=== PATIENT | female | born 1945 | race Caucasian/White ===

== ENCOUNTER 2020-01-20 12:36 | Inpatient (IN) ==
[2020-01-20] MEDS ORDERED: SODIUM CHLORIDE 0.9% 1,000 ML IV STA (12:50)
[2020-01-20 13:25] LABS: ABG Base Excess -0.7 MMOL/L (-2.5-2.5); ABG HCO3 23.4 MMOL/L (20-26); ABG Oxygen Saturation 74.4 % (95-100); ABG PCO2 51.5 MM HG (35-48); ABG PH 7.316 (7.35-7.45); ABG PO2 45.8 MM HG (80-95); ABG TCO2 23.6 MMOL/L (23-27)
[2020-01-20 14:09] LABS: Basophils % 0.1 % (0.0-0.8); Hemoglobin 12.4 GM/DL (12.0-16.0); Immature Granulocytes % 0.6 %; Immature Granulocytes Absolute 0.06 #; Lymphocytes # 1.1 10*3/uL (1.4-4.0); Lymphocytes % 10.5 % (21.3-54.2); Mean Corpuscular HGB Conc 30.2 GM/DL (32-36); Mean Corpuscular Volume 91.9 FL (87-102); Mean Platelet Volume 13.2 FL (9.6-12.0); Monocytes % 7.2 % (1.7-12.7); Neutrophils % 81.6 % (38.7-73.9); Platelet Count 146 T/CUMM (130-400); Red Blood Count 4.46 MC/CUMM (3.8-5.5); White Blood Count 10.8 T/CUMM (4-12)
[2020-01-20 14:14] LABS: Albumin 3.6 G/DL (3.4-5.0); Bilirubin,Total 0.6 MG/DL (0.2-1.0); Calcium 9.4 MG/DL (8.5-10.1); Osmolality,Calculated 288.4 MOS/KG (273-304); Total Protein 6.9 G/DL (6.4-8.3)
[2020-01-20 14:28] LABS: Apearance,Urine CLOUDY (Clear); Bilirubin,Urine Negative (Negative); Blood, Urine Moderate mg/dL (Negative); Glucose,Urine (UA) Negative (Negative); Ketones,Urine Negative (Negative); Mucus,Urine Occasional /LPF (Occasional); Nitrite,Urine Negative (Negative); Protein,Urine >=500 MG/DL; Urine Color Yellow (Yellow); Urine Specific Gravity 1.016 (1.001-1.035); Urine Urobilinogen < 2.0 EU/DL (0.2-1.0); WBC,Urine 2245 /HPF (0-6)
[2020-01-20 14:30] LABS: INR 1.1; PT Patient Result 11.6 SECS (9.8-11.9); Partial Thromboplastin Time 26.6 SECS (23.9-33.8)
[2020-01-20 14:30] LABS: Barbiturates Screen,Urine Negative (Negative); Benzodiazepines Screen,Urine Negative (Negative); Cannabinoid Screen,Urine Negative (Negative); Opiate Screen,Urine Positive (Negative); Phencyclidine Screen,Urine Negative (Negative)
[2020-01-20] MEDS ORDERED: LEVOFLOXACIN INJ 500 MG in PREMIX 1 EACH IV STA (15:07)
[2020-01-20] MEDS ORDERED: ENOXAPARIN 40 MG/0.4 ML SYRINGE SUBCUT STA (15:09)
[2020-01-20] MEDS ORDERED: FUROSEMIDE 100 MG/10 ML VIAL IV ONE (16:50)
[2020-01-20] MEDS ORDERED: GLUCAGON 1 MG VIAL IM PRN (17:08)
[2020-01-20] MEDS ORDERED: DEXTROSE 50% 25 GM/50 ML VIAL IV PRN (17:08)
[2020-01-20] MEDS ORDERED: ONDANSETRON 4 MG/2 ML VIAL IV PRN (17:08)
[2020-01-20] MEDS ORDERED: FUROSEMIDE 20 MG/2 ML VIAL ONE (17:35)
[2020-01-20] MEDS ORDERED: FUROSEMIDE 40 MG/4 ML VIAL ONE (17:36)
[2020-01-20] MEDS: methylPREDNISolone SOD SUC 40 MG/1 ML VIAL IV SCH (17:41)
[2020-01-20] MEDS: ENOXAPARIN 30 MG/0.3 ML SYRINGE SUBCUT SCH (17:43)
[2020-01-20] MEDS: ALBUTEROL/IPRATROPIUM 3 ML NEB RESP TX SCH ×2 (18:59→23:24)
[2020-01-20] MEDS ORDERED: hydrALAZINE 20 MG/1 ML VIAL IV ONE (20:40)
[2020-01-20] MEDS ORDERED: ALBUTEROL/IPRATROPIUM 3 ML NEB RESP TX ONE (20:41)
[2020-01-20 21:19] LABS: ABG Base Excess -1.8 MMOL/L (-2.5-2.5); ABG HCO3 22.7 MMOL/L (20-26); ABG Oxygen Saturation 86.1 % (95-100); ABG PCO2 58.8 MM HG (35-48); ABG PH 7.265 (7.35-7.45); ABG PO2 61.9 MM HG (80-95); ABG TCO2 23.7 MMOL/L (23-27)
[2020-01-20] MEDS ORDERED: ETOMIDATE 20 MG/10 ML VIAL IV ONE (21:25)
[2020-01-20] MEDS ORDERED: VECURONIUM 10 MG VIAL IV ONE (21:26)
[2020-01-20] MEDS: BIMATOPROST 0.01% OPH SOLN 2.5 ML BOTTLE BOTH EYES SCH (22:57)
[2020-01-20] MEDS: BUDESONIDE/FORMOTEROL 160-4.5 INHALER 6 GM INH SCH (22:57)
[2020-01-20] MEDS: FUROSEMIDE INJ 100 MG in SODIUM CHLORIDE 0.9% 90 ML IV SCH (22:57)
[2020-01-20] MEDS: INSULIN LISPRO 100 UNIT/ML SUBCUT SCH (22:58)
[2020-01-20] MEDS: cilostazoL 100 MG TABLET PO SCH (22:59)
[2020-01-20] MEDS: AMPICILLIN 500 MG CAPSULE PO SCH (22:59)
[2020-01-20 23:12] LABS: ABG Base Excess 0.8 MMOL/L (-2.5-2.5); ABG HCO3 24.8 MMOL/L (20-26); ABG Oxygen Saturation 84.2 % (95-100); ABG PCO2 40.4 MM HG (35-48); ABG PH 7.408 (7.35-7.45); ABG PO2 50.8 MM HG (80-95); ABG TCO2 22.2 MMOL/L (23-27)
[2020-01-21] MEDS: methylPREDNISolone SOD SUC 40 MG/1 ML VIAL IV SCH ×3 (01:54→18:17)
[2020-01-21] MEDS: ALBUTEROL/IPRATROPIUM 3 ML NEB RESP TX SCH ×6 (03:08→23:24)
[2020-01-21 03:53] LABS: ABG Base Excess 1.6 MMOL/L (-2.5-2.5); ABG HCO3 25.7 MMOL/L (20-26); ABG Oxygen Saturation 91.9 % (95-100); ABG PH 7.437 (7.35-7.45); ABG PO2 64.2 MM HG (80-95); ABG TCO2 22.4 MMOL/L (23-27); Allen Test Positive; Pt O2 Delivery Device Ventilator
[2020-01-21 04:31] LABS: Basophils % 0.1 % (0.0-0.8); Hematocrit 40.9 VOL% (35.7-47.0); Hemoglobin 12.9 GM/DL (12.0-16.0); Immature Granulocytes % 0.6 %; Immature Granulocytes Absolute 0.07 #; Lymphocytes % 7.6 % (21.3-54.2); Mean Corpuscular HGB Conc 31.5 GM/DL (32-36); Mean Platelet Volume 12.8 FL (9.6-12.0); Monocytes % 5.9 % (1.7-12.7); Neutrophils % 85.8 % (38.7-73.9); Platelet Count 141 T/CUMM (130-400); Red Cell Distribution Width 14.9 % (9.3-17.3); White Blood Count 12.6 T/CUMM (4-12)
[2020-01-21 04:53] LABS: Calcium 9.1 MG/DL (8.5-10.1); Osmolality,Calculated 291.1 MOS/KG (273-304)
[2020-01-21] MEDS: INSULIN LISPRO 100 UNIT/ML SUBCUT SCH ×4 (07:54→20:51)
[2020-01-21] MEDS ORDERED: NF- (Fluticasone-Umeclidin-Vilanter [Trelegy Ellipta] 1 inh) INH SCH (09:00)
[2020-01-21] MEDS ORDERED: MAGNESIUM SULF RIDER 2 GM in PREMIX 1 EACH IV PRN (09:10)
[2020-01-21] MEDS ORDERED: POTASSIUM CHLORIDE 10 MEQ TABLET PO ONE (09:10)
[2020-01-21] MEDS ORDERED: MAGNESIUM SULF RIDER 4 GM in PREMIX 1 EACH IV PRN (09:10)
[2020-01-21] MEDS: cilostazoL 100 MG TABLET PO SCH ×2 (09:46→20:45)
[2020-01-21] MEDS: ATORVASTATIN 40 MG TABLET PO SCH (09:47)
[2020-01-21] MEDS: ASPIRIN CHEW 81 MG TABLET PO SCH (09:47)
[2020-01-21] MEDS: PANTOPRAZOLE 40 MG VIAL IV SCH (09:47)
[2020-01-21] MEDS: amLODIPine 5 MG TABLET PO SCH (09:56)
[2020-01-21] MEDS: LEVOFLOXACIN INJ 750 MG in PREMIX 1 EACH IV SCH (09:57)
[2020-01-21] MEDS: BUDESONIDE/FORMOTEROL 160-4.5 INHALER 6 GM INH SCH ×2 (09:57→20:48)
[2020-01-21] MEDS: AMPICILLIN 500 MG CAPSULE PO SCH ×4 (12:31→20:50)
[2020-01-21] MEDS: FUROSEMIDE INJ 100 MG in SODIUM CHLORIDE 0.9% 90 ML IV SCH (18:13)
[2020-01-21] MEDS: ENOXAPARIN 30 MG/0.3 ML SYRINGE SUBCUT SCH (18:16)
[2020-01-21] MEDS: MIDAZOLAM 2 MG/2 ML VIAL IV PRN (20:44)
[2020-01-21] MEDS: BIMATOPROST 0.01% OPH SOLN 2.5 ML BOTTLE BOTH EYES SCH (20:51)
[2020-01-22] MEDS: methylPREDNISolone SOD SUC 40 MG/1 ML VIAL IV SCH ×3 (02:22→17:20)
[2020-01-22] MEDS: ALBUTEROL/IPRATROPIUM 3 ML NEB RESP TX SCH ×6 (03:21→23:53)
[2020-01-22 03:55] LABS: ABG Base Excess 4.3 MMOL/L (-2.5-2.5); ABG HCO3 26.3 MMOL/L (20-26); ABG Oxygen Saturation 98.7 % (95-100); ABG PCO2 31.2 MM HG (35-48); ABG PH 7.544 (7.35-7.45); ABG PO2 164.1 MM HG (80-95); ABG TCO2 27.3 MMOL/L (23-27); Allen Test Positive; Pt O2 Delivery Device Ventilator
[2020-01-22 04:48] LABS: Hematocrit 36.8 VOL% (35.7-47.0); Hemoglobin 11.8 GM/DL (12.0-16.0); Immature Granulocytes % 0.4 %; Immature Granulocytes Absolute 0.05 #; Lymphocytes # 0.7 10*3/uL (1.4-4.0); Mean Corpuscular HGB Conc 32.1 GM/DL (32-36); Mean Corpuscular Volume 84.4 FL (87-102); Mean Platelet Volume 12.7 FL (9.6-12.0); Monocytes % 6.4 % (1.7-12.7); Neutrophils % 87.2 % (38.7-73.9); Platelet Count 162 T/CUMM (130-400); Red Blood Count 4.36 MC/CUMM (3.8-5.5); Red Cell Distribution Width 15.2 % (9.3-17.3); White Blood Count 11.7 T/CUMM (4-12)
[2020-01-22 05:14] LABS: Osmolality,Calculated 285.8 MOS/KG (273-304)
[2020-01-22 05:16] LABS: Albumin 3.4 G/DL (3.4-5.0); Bilirubin,Direct 0.21 MG/DL (0.0-0.20); Bilirubin,Indirect 0.3 MG/DL (0.0-1.0); Bilirubin,Total 0.5 MG/DL (0.2-1.0); Total Protein 6.5 G/DL (6.4-8.3)
[2020-01-22] MEDS: INSULIN LISPRO 100 UNIT/ML SUBCUT SCH ×3 (08:02→17:02)
[2020-01-22] MEDS: ASPIRIN CHEW 81 MG TABLET PO SCH (08:17)
[2020-01-22] MEDS: PANTOPRAZOLE 40 MG VIAL IV SCH (08:17)
[2020-01-22] MEDS: amLODIPine 5 MG TABLET PO SCH (08:18)
[2020-01-22] MEDS: AMPICILLIN 500 MG CAPSULE PO SCH ×4 (08:18→20:37)
[2020-01-22] MEDS: ATORVASTATIN 40 MG TABLET PO SCH (08:18)
[2020-01-22] MEDS: cilostazoL 100 MG TABLET PO SCH ×2 (08:18→20:37)
[2020-01-22] MEDS: POTASSIUM CHLORIDE 20 MEQ/15 ML UDCUP PER TUBE SCH ×3 (08:43→17:21)
[2020-01-22] MEDS: BUDESONIDE/FORMOTEROL 160-4.5 INHALER 6 GM INH SCH ×2 (08:50→20:37)
[2020-01-22] MEDS ORDERED: FUROSEMIDE 40 MG/4 ML VIAL IV ONE (14:00)
[2020-01-22] MEDS: ENOXAPARIN 30 MG/0.3 ML SYRINGE SUBCUT SCH (17:21)
[2020-01-22] MEDS: BIMATOPROST 0.01% OPH SOLN 2.5 ML BOTTLE BOTH EYES SCH (21:38)
[2020-01-23] MEDS: INSULIN LISPRO 100 UNIT/ML SUBCUT SCH ×4 (00:08→18:36)
[2020-01-23] MEDS: MIDAZOLAM 2 MG/2 ML VIAL IV PRN ×2 (00:17→06:26)
[2020-01-23] MEDS: methylPREDNISolone SOD SUC 40 MG/1 ML VIAL IV SCH ×3 (00:56→16:39)
[2020-01-23 03:02] LABS: Allen Test Positive; Pt O2 Delivery Device Ventilator
[2020-01-23 03:03] LABS: ABG Base Excess 5.9 MMOL/L (-2.5-2.5); ABG HCO3 29.8 MMOL/L (20-26); ABG Oxygen Saturation 99.7 % (95-100); ABG PCO2 33.4 MM HG (35-48); ABG PH 7.538 (7.35-7.45); ABG TCO2 24.9 MMOL/L (23-27)
[2020-01-23] MEDS: ALBUTEROL/IPRATROPIUM 3 ML NEB RESP TX SCH ×6 (03:28→23:20)
[2020-01-23 04:40] LABS: Hemoglobin 11.9 GM/DL (12.0-16.0); Immature Granulocytes % 0.7 %; Immature Granulocytes Absolute 0.09 #; Lymphocytes # 0.7 10*3/uL (1.4-4.0); Lymphocytes % 4.9 % (21.3-54.2); Mean Corpuscular HGB Conc 32.2 GM/DL (32-36); Mean Corpuscular Volume 85.8 FL (87-102); Mean Platelet Volume 12.6 FL (9.6-12.0); Monocytes % 8.4 % (1.7-12.7); Platelet Count 184 T/CUMM (130-400); Red Blood Count 4.31 MC/CUMM (3.8-5.5); Red Cell Distribution Width 15.3 % (9.3-17.3); White Blood Count 13.4 T/CUMM (4-12)
[2020-01-23 04:57] LABS: Calcium 9.2 MG/DL (8.5-10.1); Osmolality,Calculated 295.7 MOS/KG (273-304)
[2020-01-23 04:59] LABS: Albumin 3.7 G/DL (3.4-5.0); Bilirubin,Direct 0.2 MG/DL (0.0-0.20); Bilirubin,Indirect 0.6 MG/DL (0.0-1.0); Bilirubin,Total 0.8 MG/DL (0.2-1.0); Total Protein 6.6 G/DL (6.4-8.3)
[2020-01-23 08:00] LABS: Band Neutrophils 1 % (0-10); Hypochromasia 1+; Lymphocytes 6 % (20-55); Microcytosis Slight; Ovalocytes Slight; Segmented Neutrophils 86 % (50-85); Total Cells Counted 100
[2020-01-23 08:01] LABS: Platelet Estimate Adequate
[2020-01-23] MEDS: AMPICILLIN 500 MG CAPSULE PO SCH ×4 (08:43→21:48)
[2020-01-23] MEDS: PANTOPRAZOLE 40 MG VIAL IV SCH (08:43)
[2020-01-23] MEDS: cilostazoL 100 MG TABLET PO SCH ×2 (08:43→21:49)
[2020-01-23] MEDS: ATORVASTATIN 40 MG TABLET PO SCH (08:43)
[2020-01-23] MEDS: ASPIRIN CHEW 81 MG TABLET PO SCH (08:43)
[2020-01-23] MEDS: BUDESONIDE/FORMOTEROL 160-4.5 INHALER 6 GM INH SCH ×3 (08:45→21:49)
[2020-01-23] MEDS: LEVOFLOXACIN INJ 750 MG in PREMIX 1 EACH IV SCH (08:59)
[2020-01-23] MEDS: amLODIPine 5 MG TABLET PO SCH (09:04)
[2020-01-23] MEDS: ENOXAPARIN 30 MG/0.3 ML SYRINGE SUBCUT SCH (16:40)
[2020-01-23] MEDS: hydrALAZINE 20 MG/1 ML VIAL IV PRN ×2 (16:40→22:53)
[2020-01-23] MEDS: cloNIDine 0.3 MG/24 HR PATCH TRANSDERM SCH (19:41)
[2020-01-23] MEDS: BIMATOPROST 0.01% OPH SOLN 2.5 ML BOTTLE BOTH EYES SCH (21:49)
[2020-01-24] MEDS: INSULIN LISPRO 100 UNIT/ML SUBCUT SCH ×4 (00:34→19:20)
[2020-01-24] MEDS: methylPREDNISolone SOD SUC 40 MG/1 ML VIAL IV SCH ×3 (02:36→16:47)
[2020-01-24] MEDS: niCARdipine INJ 25 MG in SODIUM CHLORIDE 0.9% 240 ML IV PRN (03:13)
[2020-01-24] MEDS: ALBUTEROL/IPRATROPIUM 3 ML NEB RESP TX SCH ×6 (03:55→23:43)
[2020-01-24 04:17] LABS: Allen Test Positive; Pt O2 Delivery Device Ventilator
[2020-01-24 04:20] LABS: ABG Base Excess 5.8 MMOL/L (-2.5-2.5); ABG HCO3 29.6 MMOL/L (20-26); ABG Oxygen Saturation 98.2 % (95-100); ABG PCO2 38.6 MM HG (35-48); ABG TCO2 25.9 MMOL/L (23-27)
[2020-01-24 04:54] LABS: Basophils % 0.1 % (0.0-0.8); Hemoglobin 11.6 GM/DL (12.0-16.0); Immature Granulocytes % 0.9 %; Immature Granulocytes Absolute 0.12 #; Lymphocytes # 1.2 10*3/uL (1.4-4.0); Lymphocytes % 9.1 % (21.3-54.2); Mean Corpuscular HGB Conc 31.4 GM/DL (32-36); Mean Corpuscular Volume 86.2 FL (87-102); Mean Platelet Volume 12.8 FL (9.6-12.0); Monocytes % 13.5 % (1.7-12.7); Neutrophils % 76.4 % (38.7-73.9); Red Blood Count 4.29 MC/CUMM (3.8-5.5); Red Cell Distribution Width 15.4 % (9.3-17.3); White Blood Count 13.6 T/CUMM (4-12)
[2020-01-24 04:56] LABS: Platelet Count 171 T/CUMM (130-400)
[2020-01-24 05:13] LABS: Albumin 3.4 G/DL (3.4-5.0)
[2020-01-24 05:27] LABS: Hypochromasia 1+; Microcytosis 1+; Ovalocytes Few; Polychromasia Slight
[2020-01-24 05:28] LABS: Platelet Estimate Adequate
[2020-01-24 05:40] LABS: Bilirubin,Direct 0.21 MG/DL (0.0-0.20); Bilirubin,Indirect 0.4 MG/DL (0.0-1.0); Bilirubin,Total 0.6 MG/DL (0.2-1.0); Calcium 8.9 MG/DL (8.5-10.1); Osmolality,Calculated 306.3 MOS/KG (273-304); Total Protein 6.5 G/DL (6.4-8.3)
[2020-01-24] MEDS: ACETAMINOPHEN 325 MG TABLET PO PRN (08:31)
[2020-01-24] MEDS: cilostazoL 100 MG TABLET PO SCH ×2 (08:31→21:22)
[2020-01-24] MEDS: amLODIPine 5 MG TABLET PO SCH (08:33)
[2020-01-24] MEDS: ASPIRIN CHEW 81 MG TABLET PO SCH (08:33)
[2020-01-24] MEDS: ATORVASTATIN 40 MG TABLET PO SCH (08:33)
[2020-01-24] MEDS: PANTOPRAZOLE 40 MG VIAL IV SCH (08:43)
[2020-01-24] MEDS: AMPICILLIN 500 MG CAPSULE PO SCH ×4 (09:24→21:22)
[2020-01-24] MEDS: BUDESONIDE/FORMOTEROL 160-4.5 INHALER 6 GM INH SCH ×2 (09:46→21:22)
[2020-01-24] MEDS: METOCLOPRAMIDE 10 MG/2 ML VIAL IV SCH ×2 (13:50→18:43)
[2020-01-24] MEDS: ENOXAPARIN 30 MG/0.3 ML SYRINGE SUBCUT SCH (16:48)
[2020-01-24] MEDS: MIDAZOLAM 2 MG/2 ML VIAL IV PRN (18:38)
[2020-01-24] MEDS: GABAPENTIN 600 MG TABLET PO SCH (21:22)
[2020-01-24] MEDS: BIMATOPROST 0.01% OPH SOLN 2.5 ML BOTTLE BOTH EYES SCH (21:22)
[2020-01-25] MEDS: INSULIN LISPRO 100 UNIT/ML SUBCUT SCH ×4 (00:17→17:19)
[2020-01-25] MEDS: METOCLOPRAMIDE 10 MG/2 ML VIAL IV SCH ×4 (01:47→18:25)
[2020-01-25] MEDS: methylPREDNISolone SOD SUC 40 MG/1 ML VIAL IV SCH ×3 (01:47→17:23)
[2020-01-25] MEDS: ALBUTEROL/IPRATROPIUM 3 ML NEB RESP TX SCH ×6 (03:11→23:10)
[2020-01-25 04:47] LABS: Allen Test Positive; Pt O2 Delivery Device Ventilator
[2020-01-25 04:48] LABS: ABG Base Excess 3.3 MMOL/L (-2.5-2.5); ABG HCO3 26.6 MMOL/L (20-26); ABG Oxygen Saturation 98.3 % (95-100); ABG PCO2 35.6 MM HG (35-48); ABG PH 7.491 (7.35-7.45); ABG PO2 124.8 MM HG (80-95); ABG TCO2 27.7 MMOL/L (23-27)
[2020-01-25 04:48] LABS: Basophils % 0.1 % (0.0-0.8); Hematocrit 34.3 VOL% (35.7-47.0); Hemoglobin 10.8 GM/DL (12.0-16.0); Lymphocytes # 1.3 10*3/uL (1.4-4.0); Lymphocytes % 13.2 % (21.3-54.2); Mean Corpuscular HGB Conc 31.5 GM/DL (32-36); Mean Corpuscular Volume 84.9 FL (87-102); Mean Platelet Volume 13.9 FL (9.6-12.0); Monocytes % 12.4 % (1.7-12.7); Neutrophils % 73.3 % (38.7-73.9); Platelet Count 132 T/CUMM (130-400); Red Blood Count 4.04 MC/CUMM (3.8-5.5); White Blood Count 9.9 T/CUMM (4-12)
[2020-01-25 04:56] LABS: Calcium 8.6 MG/DL (8.5-10.1); Osmolality,Calculated 311.5 MOS/KG (273-304)
[2020-01-25 05:40] LABS: Hypochromasia 1+; Microcytosis Slight; Ovalocytes Slight; Platelet Estimate Normal
[2020-01-25] MEDS: amLODIPine 5 MG TABLET PO SCH (09:03)
[2020-01-25] MEDS: ATORVASTATIN 40 MG TABLET PO SCH (09:03)
[2020-01-25] MEDS: AMPICILLIN 500 MG CAPSULE PO SCH ×3 (09:03→17:21)
[2020-01-25] MEDS: cilostazoL 100 MG TABLET PO SCH ×2 (09:04→20:05)
[2020-01-25] MEDS: GABAPENTIN 600 MG TABLET PO SCH ×2 (09:04→20:05)
[2020-01-25] MEDS: PANTOPRAZOLE 40 MG VIAL IV SCH (09:05)
[2020-01-25] MEDS: LEVOFLOXACIN INJ 750 MG in PREMIX 1 EACH IV SCH (09:06)
[2020-01-25] MEDS: ASPIRIN CHEW 81 MG TABLET PO SCH (09:06)
[2020-01-25] MEDS ORDERED: amLODIPine 5 MG TABLET PO ONE (11:19)
[2020-01-25] MEDS: BUDESONIDE/FORMOTEROL 160-4.5 INHALER 6 GM INH SCH ×2 (12:06→20:05)
[2020-01-25] MEDS: SODIUM CHLORIDE 0.45% 1,000 ML IV SCH (12:26)
[2020-01-25 12:28] LABS: Microalbum Ur Quant Random 23.4 MG/L (0-20); Microalbum/Creat Ratio Random 36.6 RATIO (0-30)
[2020-01-25] MEDS: ENOXAPARIN 30 MG/0.3 ML SYRINGE SUBCUT SCH (17:22)
[2020-01-25] MEDS: MIDAZOLAM 2 MG/2 ML VIAL IV PRN (18:26)
[2020-01-25] MEDS: BIMATOPROST 0.01% OPH SOLN 2.5 ML BOTTLE BOTH EYES SCH (20:05)
[2020-01-25] MEDS: hydrALAZINE 20 MG/1 ML VIAL IV PRN (21:07)
[2020-01-26] MEDS: METOCLOPRAMIDE 10 MG/2 ML VIAL IV SCH ×4 (00:15→18:57)
[2020-01-26] MEDS: methylPREDNISolone SOD SUC 40 MG/1 ML VIAL IV SCH ×3 (00:20→18:08)
[2020-01-26] MEDS: INSULIN LISPRO 100 UNIT/ML SUBCUT SCH ×4 (00:48→18:10)
[2020-01-26] MEDS: ALBUTEROL/IPRATROPIUM 3 ML NEB RESP TX SCH ×5 (03:06→19:59)
[2020-01-26 04:31] LABS: ABG Base Excess 3.5 MMOL/L (-2.5-2.5); ABG HCO3 27.6 MMOL/L (20-26); ABG Oxygen Saturation 97.1 % (95-100); ABG PCO2 42.8 MM HG (35-48); ABG PH 7.428 (7.35-7.45); ABG PO2 94.8 MM HG (80-95); ABG TCO2 25.1 MMOL/L (23-27); Allen Test Positive; Pt O2 Delivery Device Ventilator
[2020-01-26 05:06] LABS: Basophils % 0.1 % (0.0-0.8); Eosinophils % 0.1 % (0.00-10.9); Hematocrit 36.5 VOL% (35.7-47.0); Hemoglobin 11.3 GM/DL (12.0-16.0); Immature Granulocytes % 1.9 %; Immature Granulocytes Absolute 0.24 #; Lymphocytes % 8.3 % (21.3-54.2); Mean Corpuscular Volume 86.3 FL (87-102); Mean Platelet Volume 12.5 FL (9.6-12.0); Monocytes % 11.6 % (1.7-12.7); Platelet Count 149 T/CUMM (130-400); Red Blood Count 4.23 MC/CUMM (3.8-5.5); Red Cell Distribution Width 14.6 % (9.3-17.3); White Blood Count 12.4 T/CUMM (4-12)
[2020-01-26] MEDS: SODIUM CHLORIDE 0.45% 1,000 ML IV SCH ×2 (05:18→21:58)
[2020-01-26 05:29] LABS: Hypochromasia 1+; Microcytosis Slight; Ovalocytes Slight; Platelet Estimate Adequate
[2020-01-26 05:41] LABS: Alanine Aminotransferase 76 U/L (13-56); Alkaline Phosphatase 62 U/L (45-117); Aspartate Amino Transferase 46 U/L (0-37); Bilirubin,Total < 0.39 MG/DL (0.2-1.0); Blood Urea Nitrogen 98 MG/DL (7-18); Calcium 8.7 MG/DL (8.5-10.1); Estimated Glom Filtration Rate 23 ML/MIN; Glucose 139 MG/DL (74-106); Osmolality,Calculated 313.3 MOS/KG (273-304); Total Protein 6.2 G/DL (6.4-8.3)
[2020-01-26] MEDS: hydrALAZINE 20 MG/1 ML VIAL IV PRN ×2 (06:04→11:22)
[2020-01-26 06:34] LABS: Hepatitis B Core IgM Quant 0.15 Index; Hepatitis B Surface Ag Quant 0.12 Index; Hepatitis B Surface Ag Result Negative (Negative); Hepatitis C Virus Ab Quant 0.02 Index; Hepatitis C Virus Ab Result Negative (Negative)
[2020-01-26] MEDS: BUDESONIDE/FORMOTEROL 160-4.5 INHALER 6 GM INH SCH ×2 (08:40→20:50)
[2020-01-26] MEDS: GABAPENTIN 600 MG TABLET PO SCH ×2 (08:44→20:46)
[2020-01-26] MEDS: PANTOPRAZOLE 40 MG VIAL IV SCH (08:44)
[2020-01-26] MEDS: ASPIRIN CHEW 81 MG TABLET PO SCH (08:44)
[2020-01-26] MEDS: ATORVASTATIN 40 MG TABLET PO SCH (08:44)
[2020-01-26] MEDS: cilostazoL 100 MG TABLET PO SCH ×2 (08:44→20:46)
[2020-01-26] MEDS: amLODIPine 10 MG TABLET NG SCH (08:44)
[2020-01-26] MEDS ORDERED: POTASSIUM CHLORIDE 20 MEQ/15 ML UDCUP PER TUBE ONE (09:00)
[2020-01-26] MEDS ORDERED: amLODIPine 10 MG TABLET PO SCH (09:00)
[2020-01-26] MEDS: ENOXAPARIN 30 MG/0.3 ML SYRINGE SUBCUT SCH (18:08)
[2020-01-26] MEDS: BIMATOPROST 0.01% OPH SOLN 2.5 ML BOTTLE BOTH EYES SCH (20:45)
[2020-01-26] MEDS: MIDAZOLAM 2 MG/2 ML VIAL IV PRN (20:55)
[2020-01-27] MEDS: INSULIN LISPRO 100 UNIT/ML SUBCUT SCH ×4 (00:25→17:38)
[2020-01-27] MEDS: ALBUTEROL/IPRATROPIUM 3 ML NEB RESP TX SCH ×6 (00:50→19:45)
[2020-01-27] MEDS: METOCLOPRAMIDE 10 MG/2 ML VIAL IV SCH ×4 (01:11→18:16)
[2020-01-27] MEDS: methylPREDNISolone SOD SUC 40 MG/1 ML VIAL IV SCH ×3 (01:16→17:19)
[2020-01-27] MEDS: MIDAZOLAM 2 MG/2 ML VIAL IV PRN ×2 (02:09→22:30)
[2020-01-27] MEDS: hydrALAZINE 20 MG/1 ML VIAL IV PRN ×2 (02:48→20:57)
[2020-01-27 05:17] LABS: ABG Base Excess 1.5 MMOL/L (-2.5-2.5); ABG HCO3 25.7 MMOL/L (20-26); ABG Oxygen Saturation 96.9 % (95-100); ABG PCO2 45.7 MM HG (35-48); ABG PO2 94.6 MM HG (80-95); ABG TCO2 24.2 MMOL/L (23-27); Allen Test Positive; Pt O2 Delivery Device Ventilator
[2020-01-27 05:22] LABS: Basophils % 0.2 % (0.0-0.8); Hematocrit 35.6 VOL% (35.7-47.0); Hemoglobin 11.4 GM/DL (12.0-16.0); Immature Granulocytes % 3.6 %; Immature Granulocytes Absolute 0.46 #; Lymphocytes # 1.2 10*3/uL (1.4-4.0); Lymphocytes % 9.1 % (21.3-54.2); Mean Corpuscular Volume 85.6 FL (87-102); Mean Platelet Volume 13.2 FL (9.6-12.0); Monocytes % 9.8 % (1.7-12.7); NRBC # 0.02 10*3/uL; Neutrophils % 77.3 % (38.7-73.9); Platelet Count 143 T/CUMM (130-400); Red Blood Count 4.16 MC/CUMM (3.8-5.5); Red Cell Distribution Width 14.8 % (9.3-17.3); White Blood Count 12.7 T/CUMM (4-12)
[2020-01-27 05:39] LABS: Burr Cells Slight; Hypochromasia 1+; Microcytosis Slight; Ovalocytes Slight; Platelet Estimate Normal
[2020-01-27 05:40] LABS: Calcium 8.8 MG/DL (8.5-10.1); Osmolality,Calculated 307.5 MOS/KG (273-304)
[2020-01-27] MEDS ORDERED: hydrALAZINE 20 MG/1 ML VIAL IV ONE (05:59)
[2020-01-27] MEDS: BUDESONIDE/FORMOTEROL 160-4.5 INHALER 6 GM INH SCH ×2 (08:20→20:45)
[2020-01-27] MEDS: cilostazoL 100 MG TABLET PO SCH ×2 (08:27→20:54)
[2020-01-27] MEDS: ATORVASTATIN 40 MG TABLET PO SCH (08:28)
[2020-01-27] MEDS: amLODIPine 10 MG TABLET NG SCH (08:28)
[2020-01-27] MEDS: ASPIRIN CHEW 81 MG TABLET PO SCH (08:28)
[2020-01-27] MEDS: GABAPENTIN 600 MG TABLET PO SCH ×2 (08:28→20:55)
[2020-01-27] MEDS: LEVOFLOXACIN INJ 250 MG in PREMIX 1 EACH IV SCH (08:28)
[2020-01-27] MEDS: PANTOPRAZOLE 40 MG VIAL IV SCH (08:29)
[2020-01-27] MEDS ORDERED: NEBIVOLOL 5 MG TABLET NG SCH (09:00)
[2020-01-27] MEDS: SODIUM CHLORIDE 0.45% 1,000 ML IV SCH (14:16)
[2020-01-27] MEDS: METOPROLOL TARTRATE 5 MG/5 ML VIAL IV PRN ×2 (15:40→21:39)
[2020-01-27] MEDS: ENOXAPARIN 30 MG/0.3 ML SYRINGE SUBCUT SCH (17:19)
[2020-01-27] MEDS: BIMATOPROST 0.01% OPH SOLN 2.5 ML BOTTLE BOTH EYES SCH (20:42)
[2020-01-28] MEDS: INSULIN LISPRO 100 UNIT/ML SUBCUT SCH ×4 (00:05→18:32)
[2020-01-28] MEDS: ALBUTEROL/IPRATROPIUM 3 ML NEB RESP TX SCH ×7 (00:20→19:40)
[2020-01-28] MEDS: METOCLOPRAMIDE 10 MG/2 ML VIAL IV SCH ×4 (00:40→18:37)
[2020-01-28] MEDS: methylPREDNISolone SOD SUC 40 MG/1 ML VIAL IV SCH ×3 (00:42→16:34)
[2020-01-28] MEDS: MIDAZOLAM 2 MG/2 ML VIAL IV PRN ×4 (01:28→21:14)
[2020-01-28] MEDS: METOPROLOL TARTRATE 5 MG/5 ML VIAL IV PRN ×2 (02:27→12:16)
[2020-01-28] MEDS: hydrALAZINE 20 MG/1 ML VIAL IV PRN (02:52)
[2020-01-28 04:36] LABS: ABG Oxygen Saturation 95.4 % (95-100); ABG PCO2 43.7 MM HG (35-48); ABG PH 7.408 (7.35-7.45); ABG PO2 79.2 MM HG (80-95); ABG TCO2 28.3 MMOL/L (23-27); Allen Test Positive; Pt O2 Delivery Device Ventilator
[2020-01-28 04:36] LABS: Basophils % 0.2 % (0.0-0.8); Eosinophils % 0.2 % (0.00-10.9); Hematocrit 35.7 VOL% (35.7-47.0); Hemoglobin 11.2 GM/DL (12.0-16.0); Immature Granulocytes % 4.3 %; Immature Granulocytes Absolute 0.56 #; Lymphocytes # 0.9 10*3/uL (1.4-4.0); Lymphocytes % 6.8 % (21.3-54.2); Mean Corpuscular HGB Conc 31.4 GM/DL (32-36); Mean Corpuscular Volume 87.9 FL (87-102); Mean Platelet Volume 12.8 FL (9.6-12.0); Monocytes % 9.8 % (1.7-12.7); Neutrophils % 78.7 % (38.7-73.9); Platelet Count 151 T/CUMM (130-400); Red Blood Count 4.06 MC/CUMM (3.8-5.5); Red Cell Distribution Width 14.7 % (9.3-17.3); White Blood Count 13.1 T/CUMM (4-12)
[2020-01-28 04:55] LABS: Burr Cells Slight; Hypochromasia 1+; Lymphocytes 4 % (20-55); Microcytosis Slight; Ovalocytes Slight; Platelet Estimate Adequate; Segmented Neutrophils 89 % (50-85); Total Cells Counted 100
[2020-01-28 04:57] LABS: Calcium 8.8 MG/DL (8.5-10.1); Osmolality,Calculated 304.4 MOS/KG (273-304)
[2020-01-28] MEDS: ASPIRIN CHEW 81 MG TABLET PO SCH (08:06)
[2020-01-28] MEDS: cilostazoL 100 MG TABLET PO SCH ×2 (08:06→21:14)
[2020-01-28] MEDS: ATORVASTATIN 40 MG TABLET PO SCH (08:06)
[2020-01-28] MEDS: NEBIVOLOL 10 MG TABLET NG SCH (08:06)
[2020-01-28] MEDS: GABAPENTIN 600 MG TABLET PO SCH ×2 (08:07→21:14)
[2020-01-28] MEDS: PANTOPRAZOLE 40 MG VIAL IV SCH (08:07)
[2020-01-28] MEDS: amLODIPine 10 MG TABLET NG SCH (08:07)
[2020-01-28] MEDS: BUDESONIDE/FORMOTEROL 160-4.5 INHALER 6 GM INH SCH ×2 (08:49→21:49)
[2020-01-28 15:23] LABS: Antinuclear Ab, S 0.2 U
[2020-01-28] MEDS: ENOXAPARIN 30 MG/0.3 ML SYRINGE SUBCUT SCH (16:35)
[2020-01-28] MEDS: SODIUM CHLORIDE 0.45% 1,000 ML IV SCH (20:41)
[2020-01-28] MEDS: BIMATOPROST 0.01% OPH SOLN 2.5 ML BOTTLE BOTH EYES SCH (21:49)
[2020-01-29] MEDS: ALBUTEROL/IPRATROPIUM 3 ML NEB RESP TX SCH ×6 (00:13→19:47)
[2020-01-29] MEDS: INSULIN LISPRO 100 UNIT/ML SUBCUT SCH ×4 (00:59→18:30)
[2020-01-29] MEDS: SODIUM CHLORIDE 0.45% 1,000 ML IV SCH ×4 (01:24→18:27)
[2020-01-29] MEDS: methylPREDNISolone SOD SUC 40 MG/1 ML VIAL IV SCH ×3 (01:25→17:09)
[2020-01-29] MEDS: METOCLOPRAMIDE 10 MG/2 ML VIAL IV SCH ×4 (01:27→18:27)
[2020-01-29 03:48] LABS: Basophils % 0.3 % (0.0-0.8); Eosinophils % 0.2 % (0.00-10.9); Hematocrit 34.7 VOL% (35.7-47.0); Hemoglobin 11.1 GM/DL (12.0-16.0); Immature Granulocytes % 5.8 %; Immature Granulocytes Absolute 0.82 #; Lymphocytes # 0.9 10*3/uL (1.4-4.0); Lymphocytes % 6.2 % (21.3-54.2); Mean Corpuscular Volume 86.1 FL (87-102); Mean Platelet Volume 12.6 FL (9.6-12.0); Monocytes % 11.1 % (1.7-12.7); Neutrophils % 76.4 % (38.7-73.9); Platelet Count 144 T/CUMM (130-400); Red Blood Count 4.03 MC/CUMM (3.8-5.5); Red Cell Distribution Width 14.6 % (9.3-17.3); White Blood Count 14.2 T/CUMM (4-12)
[2020-01-29 04:13] LABS: Calcium 8.8 MG/DL (8.5-10.1); Osmolality,Calculated 298.4 MOS/KG (273-304)
[2020-01-29 04:41] LABS: ABG Oxygen Saturation 97.6 % (95-100); ABG PCO2 44.8 MM HG (35-48); ABG PH 7.421 (7.35-7.45); ABG PO2 98.3 MM HG (80-95); ABG TCO2 26.1 MMOL/L (23-27); Allen Test Positive; Pt O2 Delivery Device Ventilator
[2020-01-29 06:42] LABS: Anisocytosis Slight; Band Neutrophils 3 % (0-10); Lymphocytes 8 % (20-55); Platelet Estimate Normal; Segmented Neutrophils 74 % (50-85); Total Cells Counted 100
[2020-01-29] MEDS ORDERED: POTASSIUM CHLORIDE 20 MEQ/15 ML UDCUP PER TUBE PRN (07:33)
[2020-01-29] MEDS ORDERED: MIDAZOLAM 2 MG/2 ML VIAL IV PRN (07:51)
[2020-01-29] MEDS ORDERED: POTASSIUM CHLORIDE 20 MEQ TABLET PO PRN (09:30)
[2020-01-29] MEDS: BUDESONIDE/FORMOTEROL 160-4.5 INHALER 6 GM INH SCH ×2 (09:30→20:04)
[2020-01-29] MEDS: amLODIPine 10 MG TABLET NG SCH (09:52)
[2020-01-29] MEDS: ATORVASTATIN 40 MG TABLET PO SCH (09:52)
[2020-01-29] MEDS: PANTOPRAZOLE 40 MG VIAL IV SCH (09:52)
[2020-01-29] MEDS: cilostazoL 100 MG TABLET PO SCH ×2 (09:52→20:38)
[2020-01-29] MEDS: LEVOFLOXACIN INJ 250 MG in PREMIX 1 EACH IV SCH (09:53)
[2020-01-29] MEDS: NEBIVOLOL 10 MG TABLET NG SCH (09:53)
[2020-01-29] MEDS: ASPIRIN CHEW 81 MG TABLET PO SCH (09:53)
[2020-01-29] MEDS: GABAPENTIN 600 MG TABLET PO SCH ×2 (09:53→20:38)
[2020-01-29] MEDS: hydrALAZINE 20 MG/1 ML VIAL IV PRN (11:04)
[2020-01-29] MEDS ORDERED: NEBIVOLOL 10 MG TABLET PO ONE (11:35)
[2020-01-29] MEDS ORDERED: LOSARTAN/HCTZ 50-12.5 MG TABLET PO SCH (11:37)
[2020-01-29 12:16] LABS: Glomerular Basement Membrane A < 0.2 U; Myeloperoxidase Antibody < 0.2 U
[2020-01-29] MEDS: SERTRALINE 100 MG TABLET PO SCH (12:17)
[2020-01-29] MEDS: ACETAMINOPHEN 325 MG TABLET PO PRN (16:05)
[2020-01-29] MEDS: ENOXAPARIN 30 MG/0.3 ML SYRINGE SUBCUT SCH (17:09)
[2020-01-29] MEDS: FUROSEMIDE 40 MG/4 ML VIAL IV SCH (17:09)
[2020-01-29] MEDS: BIMATOPROST 0.01% OPH SOLN 2.5 ML BOTTLE BOTH EYES SCH (20:37)
[2020-01-29] MEDS ORDERED: ALBUMIN 5% 25 GM in PREMIX 1 EACH IV ONE (23:30)
[2020-01-30] MEDS: ALBUTEROL/IPRATROPIUM 3 ML NEB RESP TX SCH ×7 (00:05→23:35)
[2020-01-30] MEDS: METOCLOPRAMIDE 10 MG/2 ML VIAL IV SCH ×4 (00:43→18:00)
[2020-01-30] MEDS: methylPREDNISolone SOD SUC 40 MG/1 ML VIAL IV SCH ×3 (00:46→17:38)
[2020-01-30] MEDS ORDERED: SODIUM CHLORIDE 0.9% 500 ML IV ONE (02:46)
[2020-01-30 04:39] LABS: ABG Base Excess -1.9 MMOL/L (-2.5-2.5); ABG HCO3 22.8 MMOL/L (20-26); ABG Oxygen Saturation 96.9 % (95-100); ABG PCO2 41.4 MM HG (35-48); ABG PO2 89.4 MM HG (80-95); ABG TCO2 21.4 MMOL/L (23-27); Allen Test Positive; Pt O2 Delivery Device Ventilator
[2020-01-30 05:22] LABS: Basophils % 0.2 % (0.0-0.8); Eosinophils % 0.1 % (0.00-10.9); Hematocrit 31.6 VOL% (35.7-47.0); Hemoglobin 9.7 GM/DL (12.0-16.0); Immature Granulocytes % 4.7 %; Immature Granulocytes Absolute 0.88 #; Lymphocytes # 0.9 10*3/uL (1.4-4.0); Mean Corpuscular HGB Conc 30.7 GM/DL (32-36); Mean Corpuscular Volume 87.3 FL (87-102); Mean Platelet Volume 13.7 FL (9.6-12.0); Monocytes % 9.2 % (1.7-12.7); Neutrophils % 80.8 % (38.7-73.9); Platelet Count 126 T/CUMM (130-400); Red Blood Count 3.62 MC/CUMM (3.8-5.5); Red Cell Distribution Width 14.6 % (9.3-17.3); White Blood Count 18.7 T/CUMM (4-12)
[2020-01-30 05:38] LABS: Calcium 8.5 MG/DL (8.5-10.1)
[2020-01-30] MEDS: SODIUM CHLORIDE 0.45% 1,000 ML IV SCH ×3 (07:15→17:30)
[2020-01-30] MEDS: INSULIN LISPRO 100 UNIT/ML SUBCUT SCH ×5 (07:17→23:35)
[2020-01-30 08:24] LABS: Band Neutrophils 1 % (0-10); Hypochromasia 2+; Lymphocytes 5 % (20-55); Platelet Estimate Decreased; Segmented Neutrophils 84 % (50-85); Total Cells Counted 100
[2020-01-30] MEDS: FUROSEMIDE 40 MG/4 ML VIAL IV SCH (08:57)
[2020-01-30] MEDS: cloNIDine 0.3 MG/24 HR PATCH TRANSDERM SCH (09:41)
[2020-01-30] MEDS: PANTOPRAZOLE 40 MG VIAL IV SCH (09:41)
[2020-01-30] MEDS: ATORVASTATIN 40 MG TABLET PO SCH (09:42)
[2020-01-30] MEDS: SERTRALINE 100 MG TABLET PO SCH (09:42)
[2020-01-30] MEDS: ASPIRIN CHEW 81 MG TABLET PO SCH (09:42)
[2020-01-30] MEDS: cilostazoL 100 MG TABLET PO SCH ×2 (09:42→20:22)
[2020-01-30] MEDS: NEBIVOLOL 10 MG TABLET NG SCH (09:42)
[2020-01-30] MEDS: amLODIPine 10 MG TABLET NG SCH (09:42)
[2020-01-30] MEDS: GABAPENTIN 600 MG TABLET PO SCH ×2 (09:43→20:22)
[2020-01-30] MEDS: BUDESONIDE/FORMOTEROL 160-4.5 INHALER 6 GM INH SCH ×2 (09:48→20:22)
[2020-01-30] MEDS: hydrALAZINE 20 MG/1 ML VIAL IV PRN ×2 (11:20→21:27)
[2020-01-30 11:57] LABS: Apearance,Urine CLOUDY (Clear); Bacteria,Urine Occasional /HPF (Few); Bilirubin,Urine Negative (Negative); Blood, Urine Moderate mg/dL (Negative); Glucose,Urine (UA) Negative (Negative); Ketones,Urine Negative (Negative); Mucus,Urine Occasional /LPF (Occasional); Nitrite,Urine Negative (Negative); Protein,Urine 100 MG/DL; RBC,Urine 1938 /HPF (0-4); Squamous Epithelial Cell,Urine Occasional /HPF (0-10); Urine Specific Gravity 1.017 (1.001-1.035); Urine Urobilinogen < 2.0 EU/DL (0.2-1.0); WBC,Urine 762 /HPF (0-6)
[2020-01-30 11:58] LABS: Urine Color y (Yellow)
[2020-01-30] MEDS: ENOXAPARIN 30 MG/0.3 ML SYRINGE SUBCUT SCH (17:38)
[2020-01-30] MEDS: BIMATOPROST 0.01% OPH SOLN 2.5 ML BOTTLE BOTH EYES SCH (20:22)
[2020-01-31] MEDS: methylPREDNISolone SOD SUC 40 MG/1 ML VIAL IV SCH ×3 (01:48→18:49)
[2020-01-31] MEDS: METOCLOPRAMIDE 10 MG/2 ML VIAL IV SCH ×4 (01:48→19:10)
[2020-01-31] MEDS: SODIUM CHLORIDE 0.45% 1,000 ML IV SCH (02:51)
[2020-01-31] MEDS: ALBUTEROL/IPRATROPIUM 3 ML NEB RESP TX SCH ×6 (02:58→23:52)
[2020-01-31 04:15] LABS: ABG Base Excess -3.5 MMOL/L (-2.5-2.5); ABG HCO3 21.5 MMOL/L (20-26); ABG Oxygen Saturation 95.8 % (95-100); ABG PCO2 40.1 MM HG (35-48); ABG PH 7.346 (7.35-7.45); ABG PO2 80.2 MM HG (80-95); Allen Test Positive; Pt O2 Delivery Device Ventilator
[2020-01-31] MEDS: hydrALAZINE 20 MG/1 ML VIAL IV PRN ×3 (04:40→21:50)
[2020-01-31 04:54] LABS: Basophils # 0.1 10*3/uL (0.0-0.2); Basophils % 0.3 % (0.0-0.8); Eosinophils # 0.1 10*3/uL (0.0-0.87); Eosinophils % 0.3 % (0.00-10.9); Hematocrit 31.7 VOL% (35.7-47.0); Immature Granulocytes % 6.7 %; Immature Granulocytes Absolute 1.28 #; Lymphocytes % 5.3 % (21.3-54.2); Mean Corpuscular HGB Conc 31.5 GM/DL (32-36); Mean Corpuscular Volume 86.8 FL (87-102); Neutrophils % 78.4 % (38.7-73.9); Platelet Count 129 T/CUMM (130-400); Red Blood Count 3.65 MC/CUMM (3.8-5.5); Red Cell Distribution Width 14.4 % (9.3-17.3); White Blood Count 19.2 T/CUMM (4-12)
[2020-01-31 05:18] LABS: Band Neutrophils 2 % (0-10); Hypochromasia 1+; Lymphocytes 4 % (20-55); Metamyelocytes 2 %; Microcytosis Slight; Ovalocytes Slight; Segmented Neutrophils 84 % (50-85); Total Cells Counted 100
[2020-01-31 05:19] LABS: Acanthocytes Few; Platelet Estimate Adequate
[2020-01-31 06:08] LABS: Calcium 8.3 MG/DL (8.5-10.1); Osmolality,Calculated 293.5 MOS/KG (273-304)
[2020-01-31] MEDS: INSULIN LISPRO 100 UNIT/ML SUBCUT SCH ×3 (06:42→19:10)
[2020-01-31] MEDS: ASPIRIN CHEW 81 MG TABLET PO SCH (09:47)
[2020-01-31] MEDS: cilostazoL 100 MG TABLET PO SCH ×2 (09:47→21:49)
[2020-01-31] MEDS: NEBIVOLOL 10 MG TABLET NG SCH (09:47)
[2020-01-31] MEDS: SERTRALINE 100 MG TABLET PO SCH (09:47)
[2020-01-31] MEDS: ATORVASTATIN 40 MG TABLET PO SCH (09:47)
[2020-01-31] MEDS: GABAPENTIN 600 MG TABLET PO SCH ×2 (09:47→21:49)
[2020-01-31] MEDS: amLODIPine 10 MG TABLET NG SCH (09:48)
[2020-01-31] MEDS: PANTOPRAZOLE 40 MG VIAL IV SCH (09:50)
[2020-01-31] MEDS: BUDESONIDE/FORMOTEROL 160-4.5 INHALER 6 GM INH SCH ×2 (09:57→21:50)
[2020-01-31] MEDS: LEVOFLOXACIN INJ 250 MG in PREMIX 1 EACH IV SCH (09:57)
[2020-01-31] MEDS: SODIUM CHLORIDE 0.9% 1,000 ML IV SCH (10:18)
[2020-01-31] MEDS: ENOXAPARIN 30 MG/0.3 ML SYRINGE SUBCUT SCH (18:38)
[2020-01-31] MEDS: BIMATOPROST 0.01% OPH SOLN 2.5 ML BOTTLE BOTH EYES SCH (21:49)
[2020-02-01] MEDS: SODIUM CHLORIDE 0.9% 1,000 ML IV SCH ×2 (00:37→13:52)
[2020-02-01] MEDS: INSULIN LISPRO 100 UNIT/ML SUBCUT SCH ×4 (00:52→18:39)
[2020-02-01] MEDS: METOCLOPRAMIDE 10 MG/2 ML VIAL IV SCH ×4 (02:12→18:40)
[2020-02-01] MEDS: methylPREDNISolone SOD SUC 40 MG/1 ML VIAL IV SCH ×2 (02:18→13:53)
[2020-02-01] MEDS: ALBUTEROL/IPRATROPIUM 3 ML NEB RESP TX SCH ×5 (04:00→19:38)
[2020-02-01 04:07] LABS: ABG HCO3 21.9 MMOL/L (20-26); ABG Oxygen Saturation 98.6 % (95-100); ABG PCO2 40.7 MM HG (35-48); ABG PH 7.348 (7.35-7.45); ABG TCO2 20.6 MMOL/L (23-27); Allen Test Positive; Pt O2 Delivery Device Ventilator
[2020-02-01 05:16] LABS: Basophils # 0.1 10*3/uL (0.0-0.2); Basophils % 0.4 % (0.0-0.8); Eosinophils % 0.1 % (0.00-10.9); Hemoglobin 10.1 GM/DL (12.0-16.0); Immature Granulocytes % 7.4 %; Immature Granulocytes Absolute 1.22 #; Lymphocytes # 0.7 10*3/uL (1.4-4.0); Lymphocytes % 4.2 % (21.3-54.2); Mean Corpuscular HGB Conc 30.6 GM/DL (32-36); Mean Corpuscular Volume 88.7 FL (87-102); Monocytes % 8.2 % (1.7-12.7); Neutrophils % 79.7 % (38.7-73.9); Platelet Count 124 T/CUMM (130-400); Red Blood Count 3.72 MC/CUMM (3.8-5.5); Red Cell Distribution Width 14.5 % (9.3-17.3); White Blood Count 16.4 T/CUMM (4-12)
[2020-02-01 05:38] LABS: Lymphocytes 7 % (20-55); Segmented Neutrophils 82 % (50-85); Total Cells Counted 100
[2020-02-01 05:39] LABS: Albumin 2.6 G/DL (3.4-5.0); Calcium 8.8 MG/DL (8.5-10.1); Microcytosis Slight; Total Protein 5.5 G/DL (6.4-8.3)
[2020-02-01] MEDS: hydrALAZINE 20 MG/1 ML VIAL IV PRN (08:03)
[2020-02-01] MEDS: ASPIRIN CHEW 81 MG TABLET PO SCH (08:07)
[2020-02-01] MEDS: GABAPENTIN 600 MG TABLET PO SCH ×2 (08:08→22:06)
[2020-02-01] MEDS: amLODIPine 10 MG TABLET NG SCH (08:08)
[2020-02-01] MEDS: cilostazoL 100 MG TABLET PO SCH ×2 (08:08→22:05)
[2020-02-01] MEDS: ATORVASTATIN 40 MG TABLET PO SCH (08:08)
[2020-02-01] MEDS: NEBIVOLOL 10 MG TABLET NG SCH (08:08)
[2020-02-01] MEDS: SERTRALINE 100 MG TABLET PO SCH (08:11)
[2020-02-01] MEDS: PANTOPRAZOLE 40 MG VIAL IV SCH (08:11)
[2020-02-01] MEDS: DOXAZOSIN 1 MG TABLET PO SCH (09:50)
[2020-02-01] MEDS: BUDESONIDE/FORMOTEROL 160-4.5 INHALER 6 GM INH SCH ×2 (09:51→22:05)
[2020-02-01] MEDS: niCARdipine INJ 25 MG in SODIUM CHLORIDE 0.9% 240 ML IV PRN ×2 (13:10→17:26)
[2020-02-01] MEDS ORDERED: methylPREDNISolone SOD SUC 40 MG/1 ML VIAL IV SCH (14:00)
[2020-02-01] MEDS: ENOXAPARIN 30 MG/0.3 ML SYRINGE SUBCUT SCH (18:39)
[2020-02-01] MEDS: niCARdipine INJ 50 MG in SODIUM CHLORIDE 0.9% 480 ML IV PRN (20:51)
[2020-02-01] MEDS: BIMATOPROST 0.01% OPH SOLN 2.5 ML BOTTLE BOTH EYES SCH (22:05)
[2020-02-02] MEDS: ALBUTEROL/IPRATROPIUM 3 ML NEB RESP TX SCH ×7 (00:30→23:54)
[2020-02-02] MEDS: INSULIN LISPRO 100 UNIT/ML SUBCUT SCH ×4 (00:40→17:44)
[2020-02-02] MEDS: METOCLOPRAMIDE 10 MG/2 ML VIAL IV SCH ×4 (01:02→21:15)
[2020-02-02] MEDS: methylPREDNISolone SOD SUC 40 MG/1 ML VIAL IV SCH ×2 (02:25→14:55)
[2020-02-02] MEDS: SODIUM CHLORIDE 0.9% 1,000 ML IV SCH ×3 (03:22→16:04)
[2020-02-02 05:41] LABS: Basophils # 0.1 10*3/uL (0.0-0.2); Basophils % 0.5 % (0.0-0.8); Eosinophils # 0.2 10*3/uL (0.0-0.87); Eosinophils % 0.6 % (0.00-10.9); Hematocrit 35.5 VOL% (35.7-47.0); Hemoglobin 10.6 GM/DL (12.0-16.0); Immature Granulocytes % 8.8 %; Immature Granulocytes Absolute 2.54 #; Lymphocytes # 3.1 10*3/uL (1.4-4.0); Lymphocytes % 10.9 % (21.3-54.2); Mean Corpuscular HGB Conc 29.9 GM/DL (32-36); Mean Corpuscular Volume 91.7 FL (87-102); Mean Platelet Volume 13.5 FL (9.6-12.0); Monocytes % 11.2 % (1.7-12.7); NRBC # 0.02 10*3/uL; Platelet Count 153 T/CUMM (130-400); Red Blood Count 3.87 MC/CUMM (3.8-5.5); Red Cell Distribution Width 14.8 % (9.3-17.3); White Blood Count 28.8 T/CUMM (4-12)
[2020-02-02 05:56] LABS: Calcium 8.8 MG/DL (8.5-10.1); Osmolality,Calculated 309.4 MOS/KG (273-304)
[2020-02-02 06:02] LABS: Eosinophils 2 % (0-10); Hypochromasia 1+; Lymphocytes 11 % (20-55); Microcytosis Slight; Ovalocytes Slight; Platelet Estimate Adequate; Segmented Neutrophils 79 % (50-85); Total Cells Counted 100
[2020-02-02 06:44] LABS: ABG Base Excess -5.4 MMOL/L (-2.5-2.5); ABG HCO3 19.9 MMOL/L (20-26); ABG Oxygen Saturation 94.6 % (95-100); ABG PCO2 41.7 MM HG (35-48); ABG PH 7.303 (7.35-7.45); ABG PO2 74.8 MM HG (80-95); Allen Test Positive; Pt O2 Delivery Device Ventilator
[2020-02-02] MEDS: niCARdipine INJ 50 MG in SODIUM CHLORIDE 0.9% 480 ML IV PRN ×2 (07:17→18:15)
[2020-02-02] MEDS: GABAPENTIN 600 MG TABLET PO SCH ×2 (08:28→21:15)
[2020-02-02] MEDS: ATORVASTATIN 40 MG TABLET PO SCH (08:28)
[2020-02-02] MEDS: cilostazoL 100 MG TABLET PO SCH ×2 (08:28→21:15)
[2020-02-02] MEDS: SERTRALINE 100 MG TABLET PO SCH (08:28)
[2020-02-02] MEDS: NEBIVOLOL 10 MG TABLET NG SCH (08:28)
[2020-02-02] MEDS: PANTOPRAZOLE 40 MG VIAL IV SCH (08:29)
[2020-02-02] MEDS: ASPIRIN CHEW 81 MG TABLET PO SCH (08:29)
[2020-02-02] MEDS: DOXAZOSIN 1 MG TABLET PO SCH (08:29)
[2020-02-02] MEDS: BUDESONIDE/FORMOTEROL 160-4.5 INHALER 6 GM INH SCH ×2 (08:30→21:15)
[2020-02-02] MEDS: MEROPENEM 500 MG in SODIUM CHLORIDE 0.9% 100 ML IV SCH ×2 (09:14→16:19)
[2020-02-02] MEDS: LEVOFLOXACIN INJ 250 MG in PREMIX 1 EACH IV SCH (09:16)
[2020-02-02] MEDS: hydrALAZINE 20 MG/1 ML VIAL IV SCH ×2 (11:44→17:52)
[2020-02-02] MEDS ORDERED: niCARdipine 25 MG/10 ML VIAL IV ONE ×2 (13:27→16:00)
[2020-02-02] MEDS: niCARdipine INJ 25 MG in SODIUM CHLORIDE 0.9% 240 ML IV PRN ×3 (13:30→18:08)
[2020-02-02] MEDS: ENOXAPARIN 30 MG/0.3 ML SYRINGE SUBCUT SCH (16:30)
[2020-02-02] MEDS: BIMATOPROST 0.01% OPH SOLN 2.5 ML BOTTLE BOTH EYES SCH (21:15)
[2020-02-03] MEDS: niCARdipine INJ 50 MG in SODIUM CHLORIDE 0.9% 480 ML IV PRN ×3 (00:08→11:43)
[2020-02-03] MEDS: INSULIN LISPRO 100 UNIT/ML SUBCUT SCH ×5 (00:39→23:28)
[2020-02-03] MEDS: hydrALAZINE 20 MG/1 ML VIAL IV SCH ×5 (00:59→23:13)
[2020-02-03] MEDS: MEROPENEM 500 MG in SODIUM CHLORIDE 0.9% 100 ML IV SCH ×3 (01:08→16:48)
[2020-02-03] MEDS: methylPREDNISolone SOD SUC 40 MG/1 ML VIAL IV SCH ×2 (01:09→12:13)
[2020-02-03] MEDS: METOCLOPRAMIDE 10 MG/2 ML VIAL IV SCH ×4 (01:47→19:00)
[2020-02-03] MEDS: ALBUTEROL/IPRATROPIUM 3 ML NEB RESP TX SCH ×6 (03:02→23:07)
[2020-02-03] MEDS: SODIUM CHLORIDE 0.9% 1,000 ML IV SCH ×3 (05:16→18:45)
[2020-02-03 06:15] LABS: Basophils # 0.1 10*3/uL (0.0-0.2); Basophils % 0.3 % (0.0-0.8); Hematocrit 31.5 VOL% (35.7-47.0); Hemoglobin 9.8 GM/DL (12.0-16.0); Immature Granulocytes % 5.5 %; Immature Granulocytes Absolute 1.11 #; Lymphocytes # 1.1 10*3/uL (1.4-4.0); Lymphocytes % 5.2 % (21.3-54.2); Mean Corpuscular HGB Conc 31.1 GM/DL (32-36); Mean Corpuscular Volume 87.5 FL (87-102); Mean Platelet Volume 14.1 FL (9.6-12.0); Monocytes % 4.6 % (1.7-12.7); Neutrophils % 84.4 % (38.7-73.9); White Blood Count 20.3 T/CUMM (4-12)
[2020-02-03 06:16] LABS: Calcium 8.5 MG/DL (8.5-10.1); Osmolality,Calculated 313.1 MOS/KG (273-304); Platelet Count 112 T/CUMM (130-400)
[2020-02-03 06:37] LABS: Band Neutrophils 2 % (0-10); Hypochromasia 1+; Lymphocytes 7 % (20-55); Ovalocytes Slight; Platelet Estimate Decreased; Segmented Neutrophils 85 % (50-85); Total Cells Counted 100
[2020-02-03 06:38] LABS: Microcytosis Slight
[2020-02-03 06:45] LABS: PT Patient Result 10.7 SECS (9.8-11.9); Partial Thromboplastin Time 30.5 SECS (23.9-33.8)
[2020-02-03] MEDS: hydrALAZINE 20 MG/1 ML VIAL IV PRN (07:37)
[2020-02-03 08:19] LABS: ABG Base Excess -7.2 MMOL/L (-2.5-2.5); ABG HCO3 18.5 MMOL/L (20-26); ABG Oxygen Saturation 93.7 % (95-100); ABG PCO2 38.7 MM HG (35-48); ABG PH 7.294 (7.35-7.45); ABG PO2 73.2 MM HG (80-95); ABG TCO2 17.4 MMOL/L (23-27); Allen Test Positive; Pt O2 Delivery Device Ventilator
[2020-02-03] MEDS: SERTRALINE 100 MG TABLET PO SCH (08:45)
[2020-02-03] MEDS: ATORVASTATIN 40 MG TABLET PO SCH (08:46)
[2020-02-03] MEDS: GABAPENTIN 600 MG TABLET PO SCH ×2 (08:46→21:42)
[2020-02-03] MEDS: cilostazoL 100 MG TABLET PO SCH ×2 (08:46→21:42)
[2020-02-03] MEDS: NEBIVOLOL 10 MG TABLET NG SCH (08:46)
[2020-02-03] MEDS: ASPIRIN CHEW 81 MG TABLET PO SCH (08:47)
[2020-02-03] MEDS: PANTOPRAZOLE 40 MG VIAL IV SCH (08:47)
[2020-02-03] MEDS: BUDESONIDE/FORMOTEROL 160-4.5 INHALER 6 GM INH SCH ×2 (08:47→21:42)
[2020-02-03] MEDS ORDERED: DOXAZOSIN 1 MG TABLET PO SCH (09:00)
[2020-02-03 09:06] VITALS: BP 219/75
[2020-02-03] MEDS ORDERED: methylPREDNISolone SOD SUC 40 MG/1 ML VIAL ONE (11:24)
[2020-02-03] MEDS: FUROSEMIDE 40 MG/4 ML VIAL IV SCH ×3 (11:32→23:14)
[2020-02-03] MEDS: ENOXAPARIN 30 MG/0.3 ML SYRINGE SUBCUT SCH (16:48)
[2020-02-03] MEDS: BIMATOPROST 0.01% OPH SOLN 2.5 ML BOTTLE BOTH EYES SCH (21:42)
[2020-02-04] MEDS: methylPREDNISolone SOD SUC 40 MG/1 ML VIAL IV SCH (00:54)
[2020-02-04] MEDS: MEROPENEM 500 MG in SODIUM CHLORIDE 0.9% 100 ML IV SCH (00:54)
[2020-02-04] MEDS: METOCLOPRAMIDE 10 MG/2 ML VIAL IV SCH (00:55)
[2020-02-04] MEDS: METOPROLOL TARTRATE 5 MG/5 ML VIAL IV PRN (01:35)
== END 2020-02-04 02:10 | disposition hospice, home (50) | DRG 207 ==
LOC: EDUNIT# → EDBD → N.ED 12:36 → SUATTDRO 15:21 → N.EDINP 15:21 → N.ICU 16:15
PROVIDERS: ADMIT Internal Medicine; ATTEND Internal Medicine